=== PATIENT | female | born 1980 | race Caucasian/White ===

== ENCOUNTER 2017-04-28 17:30 | Outpatient (RCR) | payer OTHER, SELFPAY ==
--- NOTE | 2017-01-08 13:21 | HP.PTREVAL_ITS ---
Maribel Norris, , It has been my pleasure to treat DEB DIAMOND over the last 5 visits for . Please see the progress note below for an update on the physical therapy plan of care! Subjective: Patient reports that she was doing better but she had a backslide about a week ago- thinks its stress related. Had an MRI that showed that MD thinks its soft tissue vs. joint which is good and no surgery required. Worst pain is 10/10 with opening- its hard to open and she can't open enough for a sandwich Objective/Function: Patient presents with symptoms as last initial evaluation. She can only insert one finger inside her mouth with fully open and deviates to the right. Increased pain with palpation along TMJ, masseter, temporalis, and cervical spine. Plan Plan: Cont with prior POC 2x a week for 4 weeks Goals Goal 1:: Patient will be I with HEP and progression Goal Time Frame: 4-6 Weeks Goal 2:: Patient will place 2 fingers in mouth when open Goal Time Frame: 4-6 Weeks Goal 3:: Patient will report 2/10 pain with TMJ Goal Time Frame: 4-6 Weeks Anticipated Interventions Patient/Client Instruction: Educate patient on: Benefits of Fitness Program For the Purpose of:: To increase tolerance to activity/condition/position Manual Therapy Techniques to Include: Mobilization, Passive ROM, Functional dry needling, Soft tissue mobilization For the Purpose of:: To increase ROM, To improve nutrient delivery to tissue Please do not hesitate to contact me at [phone] by phone or Fax: if you have questions or concerns regarding this new plan of care! Sincerely, Destiney Merida
--- NOTE | 2017-02-16 13:06 | HP.PTREVAL_ITS ---
aMribel Norris, DO, It has been my pleasure to treat DEB DIAMOND over the last 11 visits for TMD. Please see the progress note below for an update on the physical therapy plan of care! Subjective: Pt. reports I am doing okay, I still feel some problems with opening my mouth. She reports being HEP compliant with all exercises and relaxation activities at home. Pt. continues to report decreased symptoms with dry needling. Objective/Function: pt. reports minimal pain with chewing, but has most of her pain with bitting on R side and attempting to open mouth. Pt. has 25 mm of mouth opening, 10mm of L lateral glide and 6 mm of R lateral glide of mandable. Pt. continues to have increased pain to 4/10 with eating. Pt. has imrpoved overall posture. No clicking or popping noted with opening or closing. PT. cotninues to be tender with palpation of R lateral pterypoids and masseters. Plan Plan: Asking for extension of PT with focus on reducing symptoms, reducing stress applied to R TMJ with opening, increasing jaw opening, 1-2 per week for 3 -4 weeks. Goals Goal 1:: Patient will be I with HEP and progression Goal Time Frame: 4-6 Weeks Goal Progress: Goal Met Goal 2:: Patient will place 2 fingers in mouth when open (25mm of opening currently) Goal Time Frame: 4-6 Weeks Goal Progress: Progressing Goal 3:: Patient will report 2/10 pain with TMJ Goal Time Frame: 4-6 Weeks Goal Progress: Progressing Anticipated Interventions Patient/Client Instruction: Educate patient on: Benefits of Fitness Program For the Purpose of:: To increase tolerance to activity/condition/position Manual Therapy Techniques to Include: Mobilization, Passive ROM, Functional dry needling, Soft tissue mobilization For the Purpose of:: To increase ROM, To improve nutrient delivery to tissue Please do not hesitate to contact me at [phone] by phone or Fax: if you have questions or concerns regarding this new plan of care! Sincerely, George Olmos
--- NOTE | 2017-06-07 14:45 | HP.PTDCNRP_ITS ---
HP - Discharge Summary (1) - Patient Information DEB DIAMOND was seen in my office for initial evaluation on . The following Plan of Care was established for this patient: - Anticipated Interventions Patient/Client Instruction: Educate patient on: Benefits of Fitness Program For the Purpose of:: To increase tolerance to activity/condition/position Manual Therapy Techniques to Include: Mobilization, Passive ROM, Functional dry needling, Soft tissue mobilization For the Purpose of:: To increase ROM, To improve nutrient delivery to tissue This patient was last seen in our office . Pertinent comments regarding their Physical therapy will appear below: Patient has not attended physical therapy in over 4 weeks- appropriate to be d/ c at this time. At this point I will be discontinuing this patient from physical therapy. I would be happy to see this patient again in the future if found appropriate by the physician. Thank you! Destiney Merida
== END 2017-04-28 19:00 | disposition home or self-care (01) ==
LOC: PT 17:30
PROVIDERS: Family Provider Family Medicine; PCP Family Medicine; Visit Provider Family Medicine
DX: M26.69 Other specified disorders of temporomandibular joint (principal)
CPT/HCPCS: 97140 ×3; 97110; 97530

== ENCOUNTER → 2017-07-14 08:23 | Outpatient (CLI) | payer OTHER, SELFPAY ==
--- NOTE | 2017-07-14 08:25 | RAD_ITS ---
STUDY: X-RAY - RIGHT KNEE REASON FOR EXAM: Female, 37 years old. Painful medial right knee. TECHNIQUE: 4 view(s) of the knee. COMPARISON: None. FINDINGS: Normal visualized distal femur. Normal visualized proximal tibia and fibula. Normal proximal tibiofibular articulation. Normal medial femorotibial compartment. Normal lateral femorotibial compartment. Normal patellofemoral articulation. The soft tissue structures are unremarkable. RAD/Knee 4 or More Views IMPRESSION: Normal x-ray examination of the knee. Electronically Signed: Дмитрий Carpio MD at 15:54 EDT Tel [phone], Service support ,
== END ==
PROVIDERS: Family Provider Family Medicine; PCP Family Medicine; Visit Provider Orthopaedic Surgery
DX: M25.561 Pain in right knee (principal)
CPT/HCPCS: 73564

== ENCOUNTER → 2017-07-22 16:22 | Outpatient (CLI) | payer OTHER, SELFPAY ==
--- NOTE | 2017-07-22 16:24 | MRI_ITS ---
STUDY: MRI RIGHT KNEE REASON FOR EXAM: Female, 37 years old. Pain TECHNIQUE: Standardized fat and water weighted pulse sequences were obtained in all 3 orthogonal planes. COMPARISON: X-ray 07/14/2017 FINDINGS: There is a small amount of joint fluid (image 11, 12/30 axial T2 fat sat). There is complex tear posterior horn and body of the medial meniscus (image 34, 32, 30/42 sagittal proton-density). There is para meniscal cyst formation at the posterior medial joint line measuring approximately 1.7 x 0.7 x 0.5 cm (image 18/24 sagittal T2 fat sat, 16/30 axial T2 fat sat). There is mild periligamentous edema at the medial collateral ligament (image 11, 12/30 coronal T2 fat sat). Normal medial meniscus. Normal hyaline cartilage of the medial femorotibial compartment. Normal medial femoral condyle and tibial plateau. Normal medial collateral ligamentous complex (MCL). Normal distal semimembranosus, gracilis and semitendinosus tendons. Normal lateral meniscus. Normal hyaline cartilage of the lateral femorotibial compartment. Normal lateral femoral condyle and tibial plateau. Normal proximal tibiofibular articulation. Normal lateral collateral (fibular) ligament. Normal popliteus tendon. Normal biceps femoris tendon. Normal anterior cruciate ligament (ACL). Normal posterior cruciate ligament (PCL). Normal congruent patellofemoral articulation. Normal hyaline cartilage of the patellofemoral compartment. Normal medial and lateral patellar retinaculum. Normal quadriceps tendon. Normal patellar tendon. Normal Hoffa's fat pad. MRI/Lower Ext Joint Only (Routine) IMPRESSION: Medial meniscus tear with mild para meniscal cyst formation Medial collateral ligament sprain Joint effusion Electronically Signed: Cooper Davis MD at 21:24 EDT Tel , Service support ,
== END ==
PROVIDERS: Family Provider Family Medicine; PCP Family Medicine; Visit Provider Orthopaedic Surgery
DX: S83.241A Other tear of medial meniscus, current injury, right knee, initial encounter (principal)
CPT/HCPCS: 73721

== ENCOUNTER → 2017-09-16 11:36 | Outpatient (CLI) | payer OTHER, SELFPAY ==
[2017-09-24 12:12] LABS: HPV Reflexed? NOT INDICATED
== END ==
PROVIDERS: Visit Provider Obstetrics & Gynecology
DX: Z12.4 Encounter for screening for malignant neoplasm of cervix (principal)
CPT/HCPCS: 88175; G0145

== ENCOUNTER 2018-01-13 18:56 | Emergency (ER) | payer OTHER, SELFPAY ==
[2018-01-13 18:57] VITALS: BP 123/72; PULSE 94; RESP 16; TEMP 36.3; O2SAT 100; BMI 36.8
--- NOTE | 2018-01-13 19:23 | CT_ITS ---
STUDY: CT BRAIN WITHOUT CONTRAST REASON FOR EXAM: Female, 37 years old. Headache and dizziness after falling earlier today. RADIATION DOSAGE (If Supplied By Facility): CTDIvol = ( 44.99 ) mGy, DLP = ( 796.11 ) mGycm TECHNIQUE: Transaxial CT imaging of the brain was performed without administration of intravenous contrast material. Individualized dose optimization techniques were used for this CT. COMPARISON: None. FINDINGS: Normal soft tissue structures. Normal calvarium. Normal size ventricles and extra-axial spaces for the patient's age. Normal white matter tracts of the cerebral hemispheres. Normal basal ganglia and thalami. Normal brainstem. Normal cerebellum. There is no intracranial hemorrhage. There are no findings of an acute ischemic infarction. Moderate mucosal thickening in the dependent right maxillary sinus. CT/Brain/Head without Contrast IMPRESSION: Normal unenhanced CT scan of the brain. Moderate mucosal thickening in the dependent right maxillary sinus. Electronically Signed: Juanita Uribe MD at 20:13 EST , Service support ,
[2018-01-13] MEDS: Ondansetron ODT 4 MG Tablet PO (19:37)
--- NOTE | 2018-01-13 20:35 | ED.VISSUMM ---
- ER Visit Summary Date of Service: 01/13/18 Chief Complaint: Fall History of Present Illness: The patient is a [address] Norris. She reports approximate 620 this morning slipped on the ice and hit her forehead on the ground. She reports she was very dazed, but did not have a loss conscious. However, as the days gone on she has been nauseated. She reports she has had a difficult time concentrating. She feels lightheaded. She denies any numbness, weakness, or vertigo. Patient reports she has a headache that is 4 out of 10 severity. She describes as a dull, aching pain. She denies any neck, back, shoulder, wrist, or hip pain. Physical Examination: Vitals: Stable. Afebrile. Head: Abrasion to the upper right side of her forehead. Minimal hematoma. Neck: No vertebral tenderness. Full ROM without difficulty. Cleared by NEXUS criteria. Back: No vertebral tenderness. General: A&O x 3. NAD. Cardiovascular exam: Regular rate and rhythm, no murmur, rub or gallop. Respiratory exam: Chest nontender. No crepitus. Clear to auscultation bilaterally. No wheezes or stridor. Abdominal exam: Soft, nontender, nondistended, normal bowel sounds. No pain in RUQ or LUQ specifically. No peritoneal signs. Extremity: Atraumatic. No pain with range of motion. Test Results: Clinical Impression(s) from Imaging Studies Brain CT 01/13/18 19:23 IMPRESSION: Normal unenhanced CT scan of the brain. Moderate mucosal thickening in the dependent right maxillary sinus. Electronically Signed: Juanita Uribe MD at 20:13 EST , Service support , Emergency Department Course and Treatment: Patient was treated with Zofran. She refused pain medications. She is resting comfortably per Treatment Plan: Patient will be discharged with Zofran for nausea. Instructed follow-up Dr. Norris 1 week for another exam. Return to the emergency department for any worsening symptoms. Disposition: To home in improved and stable condition. Impression: 1. Concussion. 2. Fall. This note was generated with [employer] software. It may contain incorrect words, spelling, and punctuation that were not noted in review of the chart prior to signing ED Disposition - Plan for ED Patient: Disposition: Home or Assisted Living Chief Complaint: Head Injury Instructions: ED Concussion Prescriptions: Ondansetron [Zofran Odt] 4 mg PO Q8H PRN PRN #10 tablet PRN Reason: Nausea Referrals: Maribel Norris DO [Primary Care Provider] - 1 Week
[2018-01-13 21:03] VITALS: BP 116/78; PULSE 78; RESP 14; RESP 19; O2SAT 100
== END 2018-01-13 21:05 | disposition home or self-care (01) ==
LOC: ED 19:25
PROVIDERS: Emergency Provider Emergency Medicine; Family Provider Family Medicine; PCP Family Medicine
DX: S06.0X0A Concussion without loss of consciousness, initial encounter (principal); S00.81XA Abrasion of other part of head, initial encounter; S00.83XA Contusion of other part of head, initial encounter; W00.0XXA Fall on same level due to ice and snow, initial encounter; Y93.9 Activity, unspecified; Y92.9 Unspecified place or not applicable
CPT/HCPCS: 70450; 99282

== ENCOUNTER 2018-01-16 11:39 | Emergency (ER) | payer OTHER, SELFPAY ==
[2018-01-16 11:39] VITALS: BP 111/75; PULSE 87; RESP 16; TEMP 36.1; O2SAT 100; BMI 25.2
[2018-01-16] MEDS: Ondansetron ODT 4 MG Tablet PO (12:06)
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
--- NOTE | 2018-01-16 12:09 | ED.DEP ---
ED Disposition - Plan for ED Patient: Chief Complaint: Head Injury Instructions: ED Concussion, ED Head Injury Closed Referrals: Maribel Norris DO [Primary Care Provider] -
[2018-01-16] MEDS: Acetaminophen 325 MG Tablet 650 MG PO (12:32)
[2018-01-16 13:21] VITALS: BP 125/87; PULSE 94; RESP 14; O2SAT 98
== END 2018-01-16 13:22 | disposition home or self-care (01) ==
LOC: ED 12:02
PROVIDERS: Emergency Provider Emergency Medicine; Family Provider Family Medicine; PCP Family Medicine
DX: R51 Headache (principal); S09.90XA Unspecified injury of head, initial encounter; W50.0XXA Accidental hit or strike by another person, initial encounter; Y93.9 Activity, unspecified; Y92.9 Unspecified place or not applicable
CPT/HCPCS: 99283

== ENCOUNTER → 2018-02-04 10:51 | Outpatient (CLI) | payer OTHER, SELFPAY ==
[2018-01-16 11:39] VITALS: BMI 25.2
--- NOTE | 2018-02-04 11:01 | MRI_ITS ---
STUDY: MRI BRAIN WITH AND WITHOUT CONTRAST REASON FOR EXAM: Female, 38 years old. Multiple head injuries now headaches and dry heaves TECHNIQUE: Standardized multiplanar fat and water weighted pulse sequences were obtained. 7 ml of Gadavist contrast material was administered intravenously for the contrast portion of the examination. COMPARISON: 02/08/2009 FINDINGS: Normal size of the ventricles and extra-axial spaces for the patient's age. Normal white matter tracts of the supratentorial brain. Normal bilateral basal ganglia. Normal thalami. There is no extra-axial fluid accumulation. Normal flow voids within the major intracranial circulation suggesting patency by spin echo criteria. Normal venous enhancement. There is no enhancing intra-axial or extra-axial abnormality. Normal sella turcica, pituitary gland, infundibular stalk, optic chiasm and hypothalamus. Normal tectal plate and pineal gland. Normal midbrain, long and medulla. Normal cerebellum. Normal basal cisterns. Normal bilateral temporal bones. Normal bilateral internal auditory canals. No demonstrated orbital abnormality, within the constraints of a routine brain study. Bilateral maxillary sinus cysts. Normal calvarium and skull base. Normal visualized soft tissue structures. Normal visualized upper cervical spine. MRI/Brain W/WO Contrast IMPRESSION: Normal unenhanced and enhanced MRI of the brain. Electronically Signed: Mohan Kelsey MD at 12:27 EST Tel , Service support ,
== END ==
PROVIDERS: Family Provider Family Medicine; PCP Family Medicine; Referring Provider Psychiatry & Neurology Neurology; Visit Provider Psychiatry & Neurology Neurology
DX: F07.81 Postconcussional syndrome (principal)
CPT/HCPCS: 70553; A9585

== ENCOUNTER 2018-04-26 15:13 | Outpatient (RCR) | payer OTHER, SELFPAY ==
--- NOTE | 2018-04-26 16:36 | MASS.EVAL ---
Massage Therapy Evaluation: Initial Evaluation Date: 04/26/2018 /Age: 11 1980, 38 Diagnosis: Back Pain Medications: Aimovig Goals: Decrease back pain Decrease muscle tension Decrease stress Plan: The patient is to be seen one time per month or PRN for a total of ten visits
--- NOTE | 2019-02-08 11:13 | MASS.DISCH ---
Massage Therapy Discharge Summary: Initial Evaluation Date: 04/26/18 Diagnosis: back pain No. of Visits: Date of last visit: 04/26/18 Goals: Insufficient visits to meet goals This patient is being discharged from our care at the [facility]. Thank you, Anette Calabrese LMT
== END 2018-04-26 19:00 | disposition home or self-care (01) ==
LOC: MASS 15:13
PROVIDERS: Family Provider Family Medicine; PCP Family Medicine; Visit Provider Family Medicine
DX: M54.9 Dorsalgia, unspecified (principal)
CPT/HCPCS: 97124

== ENCOUNTER → 2019-09-08 10:16 | Outpatient (CLI) | payer OTHER, SELFPAY | PROVIDERS: PCP Family Medicine; Referring Provider Family Medicine; Visit Provider Family Medicine | DX: R50.9 Fever, unspecified (principal); Z20.828 Contact with and (suspected) exposure to other viral communicable diseases | CPT/HCPCS: 87635; G2023; U0003 ==

== ENCOUNTER → 2020-03-07 17:34 | Outpatient (CLI) | payer OTHER, SELFPAY ==
[2020-03-07 19:57] LABS: Probe Check PASS; Specimen Processing Control PASS
== END ==
PROVIDERS: PCP Family Medicine; Visit Provider Family Medicine
DX: Z20.822 Contact with and (suspected) exposure to COVID-19 (principal)
CPT/HCPCS: 87635; C9803; U0002

== ENCOUNTER → 2020-03-18 17:15 | Outpatient (CLI) | payer OTHER, SELFPAY ==
[2020-03-20 07:22] LABS: SARS-COV-2 TOTAL ABS Nonreactive (Nonreactive)
== END ==
PROVIDERS: PCP Family Medicine; Visit Provider Family Medicine
DX: Z03.818 Encounter for observation for suspected exposure to other biological agents ruled out (principal)
CPT/HCPCS: 36415; 86769

== ENCOUNTER → 2020-11-28 | Outpatient (CLI) | payer OTHER, SELFPAY | END | disposition home or self-care (01) | LOC: LABSPEC 16:53 | PROVIDERS: PCP Family Medicine; Visit Provider Family Medicine | DX: Z20.828 Contact with and (suspected) exposure to other viral communicable diseases (principal) | CPT/HCPCS: 87635; U0005; U0003 ==

== ENCOUNTER 2021-06-09 07:30 | Outpatient (CLI) | payer OTHER, SELFPAY ==
--- NOTE | 2021-06-09 07:33 | BI_ITS ---
MAMMOGRAPHY - BILATERAL SCREENING REASON FOR EXAM: Female, 41 years old. Routine annual screening examination. PERTINENT HISTORY: Non-contributory. TECHNIQUE: Digital bilateral breast kimberley (3D mammographic acquisition) in the CC and MLO projections. 2-D mediolateral oblique (MLO) and craniocaudad (CC) views of both breasts were obtained. CAD: Full Field Digital Mammography with Computer Added Detection was performed. COMPARISON: None. Baseline examination. FINDINGS: Breast Composition: The breasts are extremely dense, which lowers the sensitivity of mammography. There are no dominant masses or suspicious calcifications. No other significant abnormalities are identified. BI/SCRN MAMM (CAD)W/KIMBERLEY BILAT IMPRESSION: Negative screening mammogram. Yearly followup mammogram recommended. (A) ASSESSMENT CATEGORY: BIRADS Category 1: Negative. A letter regarding these results will be sent to the patient by the facility within 30 days. Approximately 10% of breast cancers are not detected by mammography. A normal mammogram should not delay biopsy of a clinically suspicious abnormality. [id number] Electronically Signed: Дмитрий Carpio MD at 8:27 EDT ,
== END 2021-06-09 23:59 | disposition home or self-care (01) ==
LOC: OPBI 07:31
PROVIDERS: PCP Family Medicine; Visit Provider Family Medicine
DX: Z12.31 Encounter for screening mammogram for malignant neoplasm of breast (principal)
CPT/HCPCS: 77063; 77067

== ENCOUNTER → 2022-02-18 | Outpatient (CLI) | payer OTHER, SELFPAY ==
[2022-03-03 16:37] LABS: HPV Reflexed? NOT INDICATED
== END | disposition home or self-care (01) ==
LOC: LABSPEC 15:01
PROVIDERS: PCP Family Medicine; Visit Provider Family Medicine
DX: Z01.419 Encounter for gynecological examination (general) (routine) without abnormal findings (principal)
CPT/HCPCS: 88175; G0145

== ENCOUNTER 2022-04-21 13:18 | Outpatient (CLI) | payer BC, SELFPAY | END 2022-04-21 23:59 | disposition home or self-care (01) | PROVIDERS: PCP Family Medicine; Referring Provider Family Medicine; Visit Provider Family Medicine | DX: Z20.828 Contact with and (suspected) exposure to other viral communicable diseases (principal) | CPT/HCPCS: 87633 ==

== ENCOUNTER → 2023-05-14 | Outpatient (CLI) | payer BC, SELFPAY ==
[2023-05-14 11:19] LABS: Absolute Lymphocyte Count 1.97 X10^3/uL (0.83-4.51); Absolute Neutrophil Count 3.7 X10^3/uL (2.0-7.7); Basophil# 0.02 X10^3/uL; Basophil% 0.3 % (0-1); Eosinophil# 0.17 X10^3/uL; Eosinophils% 2.7 % (0-5); Hematocrit 38.5 % (37-47); Hemoglobin 11.3 g/dL (12.0-15.0); Lymphocyte # 1.97 X10^3/ul (0.83-4.51); Lymphocyte % 31.3 % (19-41); Mean Corp Hgb Conc 29.4 g/dL (32-36); Mean Corpuscular Hgb 22.8 pg (27.0-32.0); Mean Corpuscular Volume 77.6 fL (81-99); Mean Platelet Vol. 10.7 fl (6.2-12.0); Monocyte# 0.39 X10^3/uL; Monocyte% 6.2 % (0-10); NRBC Flagged by Analyzer 0 % (0-5); Neutrophil # 3.72 X10^3/uL (2.7-7.7); Neutrophil % 59.2 % (47-70); Platelet Count 239 K/mm3 (150-450); RBC Distribution Width CV 17.3 % (11.6-14.6); RBC Distribution Width SD 48.2 fl (35.1-43.9); Red Blood Count 4.96 M/mm3 (4.2-5.4); White Blood Count 6.3 K/mm3 (4.4-11.0)
--- OUTSIDE RECORDS SUMMARY | 2023-05-14 11:58 | XMS RPT_ITS | CCD ---
Author Name Unknown Address [address] [place] [address] Organization [facility] Care Team Providers Care Adjunct Psychology Professor Name Role Phone Cooper Harman Unavailable Medications Completed/Discontinued Medications Medication Drug Class(es) Dates Sig (Normalized) Sig (Original) amoxicillin 500 mg oral capsule (2 sources) Penicillin-class Antibacterial Start: 01-22-2016 End: 11-11-2016 AMOXICILLIN 500 MG CAPS 2 capsules twice daily AMOXICILLIN [id number] Cooper TATUM azithromycin 250 mg oral tablet (2 sources) Macrolide Antimicrobial Start: 05-02-2015 End: 11-11-2016 take 2 tablets by mouth once, then take 1 tablet by mouth once daily, then take 2-5 tablets by mouth AZITHROMYCIN 250 MG TABS 2 po on day 1 then 1 po daily on days 2-5 AZITHROMYCIN [id number] Maribel A Malys, DO dicyclomine hydrochloride 10 mg oral capsule (2 sources) Anticholinergic Start: 05-22-2014 End: 07-17-2014 take 1 capsule by mouth 30 minutes before bedtime DICYCLOMINE HCL 10 MG CAPS One cap by mouth 30 minutes before each meal and at bedtime DICYCLOMINE HCL [id number] Maribel A Malys, DO omeprazole 40 mg delayed release oral capsule (1 source) Proton Pump Inhibitor Start: 07-17-2014 OMEPRAZOLE 40 MG CPDR 1 po daily for GERD OMEPRAZOLE [id number] Maribel A Malys, DO 24 hr venlafaxine 75 mg extended release oral capsule (1 source) Serotonin and Norepinephrine Reuptake Inhibitor Start: 05-17-2014 take 1 tablet by mouth once daily for anxiety EFFEXOR XR 75 MG RR39B-PSJ One tablet by mouth daily for anxiety VENLAFAXINE HCL [id number] Maribel Norris, DO Problems Active Problems Problem Classification Problem Date Documented Date Episodic/Chronic Anxiety disorders (1 source) Generalized anxiety disorder; Translations: [Generalized anxiety disorder] Onset: 05-17-2014 05-29-2014 Chronic Unclassified (1 source) Encounter for check up; Translations: [Encounter for general adult medical examination without abnormal findings] Onset: 11-11-2016 11-11-2016 Unclassified (1 source) Postoperative physical examination; Translations: [Encounter for other specified surgical aftercare] Onset: 09-26-2015 09-26-2015 Past or Other Problems Problem Classification Problem Date Documented Date Episodic/Chronic Abdominal pain (1 source) Epigastric pain; Translations: [Epigastric pain] Onset: 05-17-2014 05-17-2014 Episodic Deficiency and other anemia (1 source) Anemia; Translations: [Anemia, unspecified] Onset: 05-21-2014 05-21-2014 Episodic Fracture of lower limb (2 sources) Unspecified fracture of unspecified toe(s), initial encounter for closed fracture; Translations: [Unspecified fracture of unspecified toe(s), initial encounter for closed fracture] Onset: 07-22-2015 07-23-2015 Episodic Nausea and vomiting (1 source) Vomiting; Translations: [Vomiting, unspecified] Onset: 05-17-2014 05-17-2014 Episodic Other connective tissue disease (2 sources) Pain in toe; Translations: [Pain in unspecified toe(s)] Onset: 08-09-2015 Resolved: 08-13-2015 12-03-2015 Episodic Other disorders of stomach and duodenum (1 source) Gastroparesis syndrome; Translations: [Gastroparesis] Onset: 05-28-2014 05-28-2014 Episodic Other skin disorders (1 source) [place] of toe; Translations: [Corns and callosities] Onset: 08-16-2015 08-16-2015 Episodic Other upper respiratory infections (1 source) Acute sinusitis; Translations: [Acute sinusitis, unspecified] Onset: 01-22-2016 01-22-2016 Episodic Results Test Name Value Interpretation Reference Range Facil ity Vital Signs Date Time Vital Sign Value Performing Clinician Faci lity 11-11-2016 11:39-0400 BMI (Body Mass Index) 25.66 kg/m2 Cooper TATUM [facility] Work Phone: 11-11-2016 11:39-0400 Body Temperature 98.3 [degF] Cooper TATUM [facility] Work Phone: 11-11-2016 11:39-0400 BP Diastolic 56 mm[Hg] Cooper TATUM [facility] Work Phone: 11-11-2016 11:39-0400 BP Systolic 108 mm[Hg] Cooper TATUM [facility] Work Phone: 11-11-2016 11:39-0400 Height 165.1 cm Cooper TATUM [facility] Work Phone: 11-11-2016 11:39-0400 Pulse (Heart Rate) 81 /min Cooper TATUM [facility] Work Phone: 11-11-2016 11:39-0400 Respiratory Rate 14 /min Cooper TATUM [facility] Work Phone: 11-11-2016 11:39-0400 Weight 69.95 kg Cooper TATUM [facility] Work Phone: 05-17-2014 17:20-0400 BSA (Body Surface Area) 1.75 m2 Cooper TATUM [facility] Work Phone: Procedures Date Procedure Procedure Detail Performing Clinician Start: 11-11-2016 End: 11-11-2016 [facility] Physical Cooper Sommers Work Phone: Start: 10-15-2015 End: 10-15-2015 Urinalysis Cooper [facility]ATUM Start: 05-17-2014 End: 05-18-2014 *CBC with Differential Maribel Norris DO Work Phone: Start: 05-17-2014 End: 05-22-2014 *CMP Complete Metabolic Panel Maribel Norris DO Work Phone: Start: 05-17-2014 End: 05-22-2014 Gastric emptying imaging study Maribel Norris DO Work Phone: Start: 05-17-2014 End: 05-22-2014 Lipase [Enzymatic activity/volume] in Serum or Plasma Maribel Norris, DO Work Phone: Plan of Treatment Date Care Activity Detail Author Start: 11-11-2016 End: 11-11-2016 Appointment Appointment [facility] Work Phone: Start: 08-09-2015 End: 08-09-2015 Orthopedic Referral Orthopedic Referral Yuli Michaels, [facility], [address], [place], [address] [facility] Work Phone: Start: 07-22-2015 End: 07-23-2015 Orthopedic Referral Orthopedic Referral Xin Gr DPM, [facility], [address], [address], [place], [address] [facility] Work Phone: Start: 05-28-2014 End: 05-28-2014 Surgery Referral Surgery Referral Shlomo Barajas MD, [facility] - General Surgery, [address] [place] [address] Rd[address] [place], [address] [facility] Work Phone: Start: 05-21-2014 End: 05-21-2014 Ferritin mass conc *Ferritin [facility] Work Phone: Start: 05-21-2014 End: 05-21-2014 Iron and Iron binding capacity panel - Serum or Plasma *IBC Iron & Total Iron Binding Capacity [facility] Work Phone: Start: 05-17-2014 End: 05-18-2014 *CBC with Differential *CBC with Differential [facility] Work Phone: Start: 05-17-2014 End: 05-21-2014 *CMP Complete Metabolic Panel *CMP Complete Metabolic Panel [facility] Work Phone: Start: 05-17-2014 End: 05-22-2014 Gastric emptying imaging study NM Gastric Emptying Study [facility] Work Phone: Start: 05-17-2014 End: 05-18-2014 Lipase enzyme act/vol *Lipase [facility] Work Phone: Additional Source Comments FOR RECORDS PERTAINING TO PATIENTS WHO ARE OR HAVE BEEN ENROLLED IN A CHEMICAL DEPENDENCY/SUBSTANCEABUSE PROGRAM, SOME INFORMATION MAY BE OMITTED. This clinical summary was aggregated from multiple sources. Caution should be exercised in using it in the provision of clinical care. This summary normalizes information from multiple sources, and as a consequence, information in this document may materially change the coding, format and clinical context of patient data. In addition, data may be omitted in some cases. CLINICAL DECISIONS SHOULD BE BASED ON THE PRIMARY CLINICAL RECORDS. [facility]. provides no warranty or guarantee of the accuracy or completeness of information in this document.
[2023-05-14 12:08] LABS: ALB/GLOB Ratio 0.9 RATIO (0.9-2.4); AST(SGOT) 22 U/L (15-37); Alanine Aminotransfer ALT/SGPT 15 U/L (13-56); Albumin, Serum 3.6 g/dL (3.2-5.0); Alkaline Phosphatase 77 U/L (45-117); Anion Gap 3 (5-15); BUN 10 mg/dL (7-18); BUN/Creat Ratio 12.4 RATIO (10-20); Calcium,Total 8.6 mg/dL (8.5-10.1); Chloride 107 mmol/L (98-107); Cholesterol 229 mg/dL (200); Creatinine, Serum 0.81 mg/dL (0.55-1.02); EST Glomerular Filtration Rate 82 mL/min (>60); Est Glom Filt Rate - Afr Amer 99 mL/min (>60); Free T3 2.5 pg/mL (2.18-3.98); Globulin 4.2 g/dL (2.2-4.2); Glucose 92 mg/dL (74-106); High Density Lipoprotein 67 mg/dL; Potassium 3.9 mmol/L (3.5-5.1); Protein, Total 7.8 g/dL (6.4-8.2); Sodium Level 138 mmol/L (136-145); T4 Free Direct 0.89 ng/dL (0.76-1.46); Thyroid Stim Hormone (TSH) 2.01 uIU/mL (0.358-3.74); Triglycerides 121 mg/dL; Very Low Density Lipoprotein 24 mg/dL (5-40)
== END | disposition home or self-care (01) ==
PROVIDERS: PCP Family Medicine; Referring Provider Family Medicine; Visit Provider Family Medicine
DX: Z00.00 Encounter for general adult medical examination without abnormal findings (principal); Z51.81 Encounter for therapeutic drug level monitoring
CPT/HCPCS: 36415; 80053; 80061; 84439; 84443; 84481; 85025

== ENCOUNTER → 2024-02-15 | Outpatient (CLI) | payer BC, SELFPAY ==
--- NOTE | 2024-02-15 08:21 | BI_ITS ---
MAMMOGRAPHY - BILATERAL SCREENING REASON FOR EXAM: Female, 44 years old. Routine annual screening examination. PERTINENT HISTORY: Non-contributory. TECHNIQUE: Digital bilateral breast kimberley (3D mammographic acquisition) in the CC and MLO projections. 2-D mediolateral oblique (MLO) and craniocaudad (CC) views of both breasts were obtained. CAD: Full Field Digital Mammography with Computer Added Detection was performed. COMPARISON: Comparison is made with prior study dated June 09, 2021. FINDINGS: Breast Composition: The breasts are extremely dense, which lowers the sensitivity of mammography. There are no dominant masses or suspicious calcifications. No other significant abnormalities are identified. There has been no significant change since the prior study. BI/SCRN MAMM (CAD)W/KIMBERLEY BILAT IMPRESSION: Stable bilateral screening mammogram. Yearly follow-up mammogram recommended. (A) ASSESSMENT CATEGORY: BIRADS Category 1: Negative. A letter regarding these results will be sent to the patient by the facility within 30 days. Approximately 10% of breast cancers are not detected by mammography. A normal mammogram should not delay biopsy of a clinically suspicious abnormality. [id number] Electronically Signed: Дмитрий Carpio MD at 9:34 EST ,
== END | disposition home or self-care (01) ==
LOC: OPBI 08:20
PROVIDERS: PCP Family Medicine; Referring Provider Family Medicine; Visit Provider Family Medicine
DX: Z12.31 Encounter for screening mammogram for malignant neoplasm of breast (principal)
CPT/HCPCS: 77063; 77067

== ENCOUNTER → 2024-03-08 | Outpatient (CLI) | payer BC, SELFPAY ==
[2024-03-08 11:16] LABS: Absolute Lymphocyte Count 1.75 X10^3/uL (0.83-4.51); Absolute Neutrophil Count 4.7 X10^3/uL (2.0-7.7); Basophil# 0.02 X10^3/uL; Basophil% 0.3 % (0-1); Eosinophil# 0.05 X10^3/uL; Eosinophils% 0.7 % (0-5); Hematocrit 34.2 % (37-47); Hemoglobin 10.4 g/dL (12.0-15.0); Lymphocyte # 1.75 X10^3/ul (0.83-4.51); Lymphocyte % 24.9 % (19-41); Mean Corp Hgb Conc 30.4 g/dL (32-36); Mean Corpuscular Hgb 22.8 pg (27.0-32.0); Mean Corpuscular Volume 74.8 fL (81-99); Mean Platelet Vol. 11.3 fl (6.2-12.0); Monocyte# 0.44 X10^3/uL; Monocyte% 6.3 % (0-10); NRBC Flagged by Analyzer 0 % (0-5); Neutrophil # 4.73 X10^3/uL (2.7-7.7); Neutrophil % 67.2 % (47-70); Platelet Count 205 K/mm3 (150-450); RBC Distribution Width CV 15.6 % (11.6-14.6); RBC Distribution Width SD 41.9 fl (35.1-43.9); Red Blood Count 4.57 M/mm3 (4.2-5.4)
[2024-03-08 12:15] LABS: AST(SGOT) 13 U/L (15-37); Alanine Aminotransfer ALT/SGPT 12 U/L (13-56); Albumin, Serum 3.6 g/dL (3.2-5.0); Alkaline Phosphatase 57 U/L (45-117); Anion Gap 7 (5-15); BUN 10 mg/dL (7-18); BUN/Creat Ratio 12.8 RATIO (10-20); Calcium,Total 8.6 mg/dL (8.5-10.1); Chloride 106 mmol/L (98-107); Cholesterol 161 mg/dL (200); Creatinine, Serum 0.78 mg/dL (0.55-1.02); EST Glomerular Filtration Rate 85 mL/min (>60); Est Glom Filt Rate - Afr Amer 102 mL/min (>60); Free T3 2.2 pg/mL (2.18-3.98); Globulin 3.7 g/dL (2.2-4.2); Glucose 93 mg/dL (74-106); High Density Lipoprotein 63 mg/dL; Potassium 3.7 mmol/L (3.5-5.1); Protein, Total 7.3 g/dL (6.4-8.2); Sodium Level 137 mmol/L (136-145); Triglycerides 60 mg/dL; Very Low Density Lipoprotein 12 mg/dL (5-40)
== END | disposition home or self-care (01) ==
LOC: LAB 10:21
PROVIDERS: PCP Family Medicine; Referring Provider Family Medicine; Visit Provider Family Medicine
DX: Z00.00 Encounter for general adult medical examination without abnormal findings (principal); Z51.81 Encounter for therapeutic drug level monitoring
CPT/HCPCS: 36415; 80053; 80061; 84439; 84443; 84481; 85025

== ENCOUNTER → 2024-03-27 | Outpatient (CLI) | payer SELFPAY | END | disposition home or self-care (01) | PROVIDERS: PCP Family Medicine; Referring Provider Family Medicine; Visit Provider Family Medicine | DX: Z12.4 Encounter for screening for malignant neoplasm of cervix (principal) ==